=== PATIENT | female | born 1970 | race Caucasian/White ===

== ENCOUNTER 2017-02-27 16:42 | Observation (INO) | payer OTHER ==
[2017-02-27] MEDS ORDERED: ASPIRIN 81 MG TABLET, CHEWABLE PO ONE (16:53)
--- NOTE | 2017-02-27 17:16 | ER Document Report ---
ED Cardiac - General Mode of Arrival: Medic Information source: Patient TRAVEL OUTSIDE OF THE [place] IN LAST 30 DAYS: No - HPI Patient complains to provider of: Chest pain Was the onset of pain: Sudden Is the pain a: New problem Chest pain radiation location: Back Chest pain precipitating factors: Mental Exertion/Stress Cardiac risk factors: Diabetes, Hypertension, Dyslipidemia <LEELA SHEETS - Last Filed: 02/27/17 18:30> <ADRIANA WILLAMS - Last Filed: 02/27/17 21:49> - General Stated Complaint: CHEST PAINS Notes: Patient is a 46-year-old female that presents to the emergency department today with complaints of chest pain which began today prior to arrival. Patient states it feels like there is a band around her upper abdomen radiating to her back. Patient states with her chest pain she has also been lightheaded with associated shortness of breath. Patient does note that she was outside in the sun a lot yesterday and has had increased stress recently. Patient states she had a cardiac catheterization in 1984 with no stent placed. Patient recently moved here from [facility] and has not seen a licensed veterinary technician in approximately 1 year. Patient states she was told she had a left branch block in the past. Patient denies any urinary symptoms or vomiting but does state she has had diarrhea over the last few days. (LEELA SHEETS) - Related Data Allergies/Adverse Reactions: adhesive Adverse Reaction (Verified 02/27/17 20:50) Past Medical History - General Information source: Patient - Social History Smoking Status: Smoker,Current Status Unk Frequency of alcohol use: None Drug Abuse: None Lives with: Family Family History: Reviewed & Not Pertinent - Past Medical History Cardiac Medical History: Reports: Hx Hypercholesterolemia, Hx Hypertension Endocrine Medical History: Reports: Hx Diabetes Mellitus Type 2 Malignancy Medical History: Reports: Hx Bone Cancer - left leg Past Surgical History: Reports: Hx Cardiac Catheterization - 1984, Other - Left leg amputation <LEELA SHEETS - Last Filed: 02/27/17 18:30> Review of Systems - Review of Systems Constitutional: No symptoms reported EENT: No symptoms reported Cardiovascular: See HPI, Chest pain - upper abdominal pain, Lightheaded Respiratory: See HPI, Short of breath Gastrointestinal: denies: Vomiting Genitourinary: denies: Discharge, Frequency Female Genitourinary: No symptoms reported Musculoskeletal: No symptoms reported Skin: No symptoms reported Hematologic/Lymphatic: No symptoms reported Neurological/Psychological: No symptoms reported -: Yes All other systems reviewed and negative <LEELA SHEETS - Last Filed: 02/27/17 18:30> Physical Exam <SUDEEPLEELA - Last Filed: 02/27/17 18:30> <ADRIANA WILLAMS - Last Filed: 02/27/17 21:49> - Vital signs Vitals: Resp 22 H 02/27/17 16:54 - Notes Notes: Physical Exam: General: Alert, appears well. HEENT: Normocephalic. Atraumatic. PERRL. Extraocular movements intact. Oropharynx clear. Dry mucous membranes. Neck: Supple. Non-tender. Respiratory: No respiratory distress. Clear and equal breath sounds bilaterally. Cardiovascular: Tachycardic, regular rhythm. Abdominal: Normal Inspection. Non-tender. No distension. Normal Bowel Sounds. Back: Non-tender. No deformity or step off. Extremities: Upper extremities: Normal inspection. Normal color. Normal ROM. Lower extremities: left leg amputation Neurological: Normal cognition. AAOx4. Normal speech. Psychological: Normal affect. Normal Mood. Skin: Warm. Dry. Normal color. (LEELA SHEETS) Course - Laboratory Result Diagrams: 02/27/17 17:04 02/27/17 17:04 - Consults Dr. Ahuja Time consulted: 18:24 Consulted provider: will see as inpatient <LEELA SHEETS - Last Filed: 02/27/17 18:30> - Laboratory Result Diagrams: 02/27/17 17:04 02/27/17 17:04 - Diagnostic Test Radiology reviewed: Reports reviewed - EKG Interpretation by Sc EKG shows normal: Sinus rhythm Rate: Normal Rhythm: NSR <ADRIANA WILLAMS - Last Filed: 02/27/17 21:49> - Re-evaluation Re-evalutation: 02/27/17 Patient is a 46-year-old female who comes in with near-syncope and chest pain. Multiple risk factors for coronary artery disease. Patient has not had a recent stress tests her catheter. Patient's and the negative d-dimer, and troponin. Patient has a left bundle-branch block on EKG according to her. Patient is recommended to stay for observation to continue to rule out ACS. Agrees with plan. Stable time of admission. (ADRIANA WILLAMS) - Vital Signs Vital signs: Temp Pulse Resp BP Pulse Ox 21 H 132/84 H 96 02/27/17 19:46 02/27/17 19:46 02/27/17 19:46 - Laboratory Laboratory results interpreted by me: 02/27/17 02/27/17 17:04 17:04 WBC 11.8 H RBC 5.44 H Hgb 17.3 H Hct 50.2 H Sodium 146.2 H Calcium 11.0 H Discharge <LEELA SHEETS - Last Filed: 02/27/17 18:30> - Discharge Admitting Provider: Hospitalist - [facility] Admitted: Telemetry <ADRIANA WILLAMS - Last Filed: 02/27/17 21:49> - Discharge Clinical Impression: Near syncope Chest pain Qualifiers: Chest pain type: unspecified Qualified Code(s): R07.9 - Chest pain, unspecified Condition: Stable Disposition: ADMITTED OBSERVATION Scribe Attestation: 02/27/17 21:49 I personally performed the services described in the documentation, reviewed and edited the documentation which was dictated to the scribe in my presence, and it accurately records my words and actions. (ADRINAA WILLAMS) Scribe Documentation - Scribe Written by Scribe:: Palmer Harris, 02/27/2017 1739 acting as scribe for :: Uday <LEELA SHEETS - Last Filed: 02/27/17 18:30>
[2017-02-27 17:26] LABS: HEMATOCRIT 50.2 % (36.0-47.0); HEMOGLOBIN 17.3 g/dL (12.0-15.5); HGB HCT DIFFERENCE 1.7; MEAN CORPUSCULAR HEMOGLOBIN 31.7 pg (27.0-33.4); MEAN CORPUSCULAR HGB CONC 34.4 g/dL (32.0-36.0); MEAN CORPUSCULAR VOLUME 92 fl (80-97); RED BLOOD COUNT 5.44 10^6/uL (3.72-5.28); RED CELL DISTRIBUTION WIDTH 12.9 % (11.5-14.0); WHITE BLOOD COUNT 11.8 10^3/uL (4.0-10.5)
--- NOTE | 2017-02-27 17:30 | EKG REPORT ---
SEVERITY:- ABNORMAL ECG - SINUS TACHYCARDIA PROBABLE LEFT ATRIAL ABNORMALITY LEFT BUNDLE BRANCH BLOCK : Confirmed by: Darius Garsia MD 27-Feb-2017 17:29:27
[2017-02-27 17:36] LABS: PARTIAL THROMBOPLASTIN TIME 27.9 SEC (23.5-35.8); PROTHROMBIN TIME 13.3 SEC (11.4-15.4)
[2017-02-27 17:46] LABS: ANION GAP 17 (5-19); BLOOD UREA NITROGEN 11 mg/dL (7-20); CARBON DIOXIDE 27 mmol/L (22-30); CHLORIDE 102 mmol/L (98-107); CREATINE KINASE 124 U/L (30-135); CREATININE RESULT 0.72 mg/dL (0.52-1.25); GLUCOSE 102 mg/dL (75-110); POTASSIUM 3.6 mmol/L (3.6-5.0); SODIUM 146.2 mmol/L (137-145)
[2017-02-27 17:55] LABS: CREATINE KINASE MB 0.85 ng/mL (<4.55)
[2017-02-27 17:58] LABS: TROPONIN I < 0.012 ng/mL
[2017-02-27] MEDS ORDERED: NORMAL SALINE 1000 ML 1,000 ML IV ONE (18:19)
--- NOTE | 2017-02-27 18:57 | PDOC H&P ---
History of Present Illness Admission Date/PCP: Dr [facility] 02/27/2017 Patient complains of: chest pain History of Present Illness: JOANNE ALANIZ is a 46 year old female that presents to the emergency department today with complaints of chest pain which began today prior to arrival. Patient states it feels like there is a band around her upper abdomen radiating to her back. Patient states with her chest pain she has also been lightheaded with associated shortness of breath. Patient does note that she was outside in the sun a lot yesterday and has had increased stress recently. Patient states she had a cardiac catheterization in 1984 with no stent placed. Patient recently moved here from [facility] and has not seen a commercial portfolio manager in approximately 1 year. Patient states she was told she had a left branch block in the past. Patient denies any urinary symptoms or vomiting but does state she has had diarrhea over the last few days. In the ED patient had an EKG showed a left bundle branch block Her cardiac enzymes were negative D-dimer was less than 0.5 She was asymptomatic She was admitted for observation for serial EKG cardiac enzymes and a Cardiolite stress test in a.m. Past Medical History Cardiac Medical History: Reports: Hyperlipidema, Hypertension Endocrine Medical History: Reports: Diabetes Mellitus Type 2 Malignancy Medical History: Reports: Bone Cancer - left leg Past Surgical History Past Surgical History: Reports: Cardiac Catheterization - 1984, Other - Left AKA for sarcoma in 1984 Social History Lives with: Family Smoking Status: Current Every Day Smoker Cigarettes Packs Per Day: 15 Frequency of Alcohol Use: None Hx Recreational Drug Use: No - Advance Directive Resuscitation Status: Full Code Surrogate healthcare decision maker:: Spouse Devni Family History Family History: Reviewed & Not Pertinent, CAD - Father Parental Family History Reviewed: Yes Children Family History Reviewed: Yes Sibling(s) Family History Reviewed.: Yes Review of Systems Constitutional: ABSENT: chills, fever(s), headache(s), weight gain, weight loss Eyes: ABSENT: visual disturbances Ears: ABSENT: hearing changes Cardiovascular: PRESENT: as per HPI, chest pain. ABSENT: dyspnea on exertion, edema, orthropnea, palpitations Respiratory: ABSENT: cough, hemoptysis Gastrointestinal: ABSENT: abdominal pain, constipation, diarrhea, hematemesis, hematochezia, nausea, vomiting Genitourinary: ABSENT: dysuria, hematuria Musculoskeletal: PRESENT: other - Status post left AKA Ambulates with crutches. ABSENT: joint swelling Integumentary: ABSENT: rash, wounds Neurological: ABSENT: abnormal gait, abnormal speech, confusion, dizziness, focal weakness, syncope Psychiatric: ABSENT: anxiety, depression, homidical ideation, suicidal ideation Endocrine: ABSENT: cold intolerance, heat intolerance, polydipsia, polyuria Hematologic/Lymphatic: ABSENT: easy bleeding, easy bruising Physical Exam General appearance: PRESENT: no acute distress, well-developed, well-nourished Head exam: PRESENT: atraumatic, normocephalic Eye exam: PRESENT: conjunctiva pink, EOMI, PERRLA. ABSENT: scleral icterus Ear exam: PRESENT: normal external ear exam Mouth exam: PRESENT: moist, tongue midline Neck exam: ABSENT: carotid bruit, JVD, lymphadenopathy, thyromegaly Respiratory exam: PRESENT: clear to auscultation lisseth. ABSENT: rales, rhonchi, wheezes Cardiovascular exam: PRESENT: RRR. ABSENT: diastolic murmur, rubs, systolic murmur Pulses: PRESENT: normal dorsalis pedis pul Vascular exam: PRESENT: normal capillary refill GI/Abdominal exam: PRESENT: normal bowel sounds, soft. ABSENT: distended, guarding, mass, organolmegaly, rebound, tenderness Rectal exam: PRESENT: deferred Extremities exam: PRESENT: full ROM, other - Left AKA. ABSENT: calf tenderness , clubbing, pedal edema Neurological exam: PRESENT: alert, awake, oriented to person, oriented to place , oriented to time, oriented to situation, CN II-XII grossly intact. ABSENT: motor sensory deficit Psychiatric exam: PRESENT: appropriate affect, normal mood. ABSENT: homicidal ideation, suicidal ideation Skin exam: PRESENT: dry, intact, warm. ABSENT: cyanosis, rash Results Laboratory Results: 02/27/17 17:04 02/27/17 17:04 02/27/17 02/27/17 17:04 17:04 WBC 11.8 H RBC 5.44 H Hgb 17.3 H Hct 50.2 H MCV 92 MCH 31.7 MCHC 34.4 RDW 12.9 Plt Count 356 Sodium 146.2 H Potassium 3.6 Chloride 102 Carbon Dioxide 27 Anion Gap 17 BUN 11 Creatinine 0.72 Est GFR ( Amer) > 60 Est GFR (Non-Af Amer) > 60 Glucose 102 Calcium 11.0 H 02/27/17 02/27/17 17:04 17:04 Creatine Kinase 124 CK-MB (CK-2) 0.85 Troponin I < 0.012 EKG Comments: . SINUS TACHYCARDIA [PLAA] . PROBABLE LEFT ATRIAL ABNORMALITY [LBBB] . LEFT BUNDLE BRANCH BLOCK Impressions: Chest X-Ray 02/27/17 16:54 IMPRESSION: NO ACUTE RADIOGRAPHIC FINDING IN THE CHEST. Head CT 02/27/17 17:26 IMPRESSION: NORMAL BRAIN CT WITHOUT CONTRAST. Assessment & Plan - Diagnosis (1) Hypertension Qualifiers: Hypertension type: essential hypertension Qualified Code(s): I10 - Essential (primary) hypertension Is this a current diagnosis for this admission?: YesPlan: Controlled continue present management (2) Tobacco abuse Is this a current diagnosis for this admission?: Yes (3) Chest pain Qualifiers: Chest pain type: unspecified Qualified Code(s): R07.9 - Chest pain, unspecified Is this a current diagnosis for this admission?: YesPlan: Patient may have coronary artery disease She does have risk factors hypertension family history smoking We will order serial cardiac enzyme and Cardiolite stress testing in a.m. Check lipids and TSH hemoglobin A1c in a.m. Aspirin Lipitor will be initiated - Time Time Spent: 50 to 70 Minutes
[2017-02-27 19:49] VITALS: BP 132/84
[2017-02-27] MEDS ORDERED: ATORVASTATIN CALCIUM 80 MG TABLET PO SCH (22:00)
[2017-02-28] MEDS ORDERED: ENOXAPARIN SODIUM INJ 40 MG/0.4 ML DISP.SYRIN SUBCUT SCH (08:00)
[2017-02-28] MEDS ORDERED: ASPIRIN 325 MG TABLET, ENT COATED PO SCH (10:00)
== END 2017-02-27 20:04 | disposition left against medical advice (07) ==
LOC: ER 16:42 → INTOOBSV 18:46 → EH 18:46 → UNDOADMIN 18:49 → EH 18:49 → UNDODISIN 20:04
PROVIDERS: ADMIT Family Medicine; ATTEND Family Medicine
DX: R07.9 Chest pain, unspecified (principal); R55 Syncope and collapse; I44.7 Left bundle-branch block, unspecified; I10 Essential (primary) hypertension; E78.5 Hyperlipidemia, unspecified; E11.9 Type 2 diabetes mellitus without complications; F17.210 Nicotine dependence, cigarettes, uncomplicated
CPT/HCPCS: 93005; 99285; 36415; 82553; 82962; 82550; 85027; 85610; 85730; 80048; 84484; 85379; 71010; 70450; 93010; G0378; C1751